=== PATIENT | male | born 1990 | race Asian ===

== ENCOUNTER 2019-01-05 17:14 | Emergency (ER) | payer SELFPAY ==
[~2019-01-05] VITALS: Ht 172.7 cm; Wt 74.4 kg
[2019-01-05 17:20] VITALS: Ht 172.7 cm; Wt 74.4 kg
[2019-01-05 20:03] VITALS: BP 121/81
== END 2019-01-05 20:03 | disposition home or self-care (01) ==
LOC: ED 17:14
DX: S13.9XXA Sprain of joints and ligaments of unspecified parts of neck, initial encounter (principal); V49.9XXA Car occupant (driver) (passenger) injured in unspecified traffic accident, initial encounter; Y93.I9 Activity, other involving external motion; Y92.413 State road as the place of occurrence of the external cause; Y99.8 Other external cause status